=== PATIENT | female | born 1980 | race Two or more races ===

== ENCOUNTER 2025-09-08 17:13 | Emergency (ER) | payer OTHER ==
[~2025-09-08] VITALS: Ht 160 cm; Wt 77.1 kg
[2025-09-08 19:35] LABS: PLATELET COUNT (AUTO) 358 K/uL (179-408); RED BLOOD CELL COUNT(AUTO) 3.93 MIL/uL (3.63-4.92); RED CELL DISTRIBUTION WIDTH 21.2 % (12.3-17.7); WHITE BLOOD COUNT (AUTO) 7.1 K/uL (3.8-11.8)
[2025-09-08] MEDS: IV NORMAL SALINE 1000 ML BAG IV ONE (19:35)
[2025-09-08 19:40] LABS: CREATININE 0.7 mg/dL (0.6-1.3); SODIUM SERUM 141.0 mmol/L (136-145); UREA NITROGEN, BLOOD 19.0 mg/dL (7-18)
[2025-09-08] MEDS ORDERED: SOD FERRIC GLUC COMPLX/SUCROSE 62.5 MG/5 ML AMPUL IV ONE (20:12)
[2025-09-08] MEDS: SOD FERRIC GLUC COMPLX/SUCROSE 125 MG in IV NORMAL SALINE 100 ML IV ONE (20:20)
[2025-09-08 20:47] LABS: LYMPHOCYTES % (MANUAL) 23 % (20-40); MONOCYTES % (MANUAL) 6 % (2-10); NEUTROPHILS % (MANUAL) 71 % (42-75)
[2025-09-08 20:48] LABS: PLATELET ESTIMATE ADEQUATE
[2025-09-08 20:52] LABS: IRON, SERUM 37 ug/dL (50-175)
[2025-09-08 23:00] VITALS: BP 118/63
[2025-09-08 23:58] VITALS: BP 120/66; O2SAT 100
== END 2025-09-08 23:35 | disposition home or self-care (01) ==
LOC: ER 17:18
DX: D50.9 Iron deficiency anemia, unspecified (principal); Z90.49 Acquired absence of other specified parts of digestive tract; Z98.84 Bariatric surgery status; Z79.899 Other long term (current) drug therapy
CPT/HCPCS: 99285; 96365; 80048; 82728; 83550; 85007; 85027; 85730; 86850; 86900; 86901; 86920; 36415; J2916; 70030-TC; A4606; A4663; P9016